=== PATIENT | female | born 2000 | race African-American/Black ===

== ENCOUNTER 2020-04-11 20:17 | Emergency (ER) | payer SELFPAY ==
[2020-04-11 20:18] VITALS: BP 141/104; PULSE 98; RESP 16; TEMP 37.4; O2SAT 100; BMI 25.1
[2020-04-11] MEDS: Ondansetron ODT 4 MG Tablet PO (21:54)
--- NOTE | 2020-04-11 22:07 | ED.DCSUM_ITS ---
History of Present Illness Chief Complaint: General Illness Informant: Patient Onset: Days Context: Gradual Onset Timing: Intermittent Current Severity: Moderate Maximum Severity: Moderate Narrative: The patient is a 19-year-old female that presents to the emergency department with nausea, vomiting, and abdominal cramping. The patient is concerned that she may be to these are symptoms that she is had before with . She states that her last menstrual period was supposed to be 2 weeks ago. She denies vaginal bleeding or discharge. She denies any constant abdominal pain. She denies any flank pain, fever, or chills. Prior similar symptoms: No Recent Illness/Hospitalization: No Past Medical History - Allergies and Home Meds Allergies/Adverse Reactions: Allergies No Known Allergies Allergy (Verified 04/11/20 20:22) Primary Care Physician: Care Physician,No Primary [Primary Care Provider] - Prior records reviewed: Yes Past Medical History: None Surgical History: no surgical history Smoking Status: Current every day smoker Review of Systems General: Denies: Chills, Fever, Sweats Eyes: Denies: Visual changes - bilaterally, Diplopia ENT: Denies: Rhinorrhea, Sore throat Cardiovascular: Denies: Chest pain, Palpitations Respiratory: Denies: Dyspnea, Cough, Dyspnea on exertion Gastrointestinal: Reports: Nausea. Denies: Abdominal pain, Vomiting, Diarrhea, Melena, Hematochezia Genitourinary: Denies: Dysuria, Hematuria, Frequency Musculoskeletal: Denies: Back pain, Extremity Pain Skin: Denies: Rash, Wounds Neurological: Denies: Headache, Weakness, Numbness Physical Exam Vital Signs/Narrative: Vital Signs Temp Pulse Resp BP Pulse Ox 04/11/20 20:18 99.3 F H 98 16 141/104 H 100 Inital Vital Signs reviewed: Yes General: Well nourished, Well developed, No Acute Distress Head: Normocephalic, Atraumatic Eyes: Perrl, EOMI ENT: Moist mucous membranes, No rhinorrhea Neck: Supple, Nontender Cardiovascular: Regular rate, Regular rhythm, No murmurs Respiratory: No distress, CTA bilaterally, Chest nontender Abdomen: Soft, Nontender, Nondistended, Normal bowel sounds Back: Nontender, Normal Inspection Extremities: Nontender, No edema Skin: Normal color, No rash Neurological: Alert, Oriented x3, Cranial nerves II-XII grossly intact, Normal Strength, Normal Sensation Psychological: Normal affect, Normal Mood Diagnostic/Tx/Re-eval Abnormal Lab Results 04/11/20 04/11/20 21:04 21:04 Urine Color Yellow Urine Clarity Sl. Cloudy Urine pH 7.[address] [place] 1.010 Urine Protein 15 H Urine Glucose (UA) Normal Urine Ketones Negative Urine Occult Blood Negative Urine Nitrite Negative Urine Bilirubin Negative Urine Urobilinogen Normal Ur Leukocyte Esterase 500 H Urine RBC 0 SEEN Urine WBC 10-25 SEEN Ur Squamous Epith Cells 0-5 SEEN Urine Bacteria 0 SEEN Urine Mucus RARE Urine Test Negative - Medical Decision Making The patient presents concerned that she is . She is had no fever or chills. She has no flank pain. Her abdomen is soft and nontender with mild suprapubic pain urine was obtained. The patient's was negative. She does appear to have cystitis. The patient will be started on Macrobid. She is given her first dose here. She will be discharged home. Impression 1. Cystitis ED Disposition - Plan for ED Patient: Instructions: ED CYSTITIS Female Adult Prescriptions: Nitrofurantoin Macrocrystals [Macrobid] 100 mg PO Q12 #10 cap Prescription Printed Ondansetron [Zofran Odt] 4 mg PO Q8H PRN PRN #10 tab PRN Reason: Nausea Prescription Printed Referrals: Care Physician,No Primary [Primary Care Provider] -
[2020-04-11 22:18] LABS: Bacteria 0 SEEN /hpf (None Seen); Red Blood Cells-Urine 0 SEEN /hpf (0-5)
[2020-04-11 22:19] LABS: Color, Urine Yellow (Yellow); Glucose, Dipstick Normal (Normal); Ketone-Dipstick Negative (Negative); Leukocyte Esterase-Dipstick 500 /ul (Negative); Nitrite-Dipstick Negative (Negative); Occult Blood-Urine Negative /ul (Negative); Protein-Dipstick 15 mg/dl (Negative); Urine Bilirubin Dipstick Negative (Negative); Urine Clarity Sl. Cloudy (Clear); Urine Urobilinogen Normal (Normal)
[2020-04-11 22:20] LABS: Internal QC Validated? YES +Cl - CLEAR BKGD
[2020-04-11 22:21] LABS: Pregnancy, Urine Negative Negative
[2020-04-11 22:24] LABS: White Blood Cells 10-25 SEEN /hpf (0-5)
[2020-04-11 22:25] LABS: Mucous, Urine RARE /hpf (<or=2+); Squamous Epithelial Cells - UA 0-5 SEEN /hpf (5-10)
[2020-04-11] MEDS: Nitrofurantoin Macrocrystals 100 MG Capsule PO (22:45)
== END 2020-04-11 22:45 | disposition home or self-care (01) ==
PROVIDERS: Emergency Provider Emergency Medicine
DX: N30.90 Cystitis, unspecified without hematuria (principal); F17.200 Nicotine dependence, unspecified, uncomplicated
CPT/HCPCS: 81001; 81025; 99283